=== PATIENT | male | born 1930 | race Caucasian/White ===

== ENCOUNTER 2018-06-12 07:59 | Inpatient (IN) ==
--- NOTE | 2018-06-12 08:52 | ED ---
HPI General Chief complaint: Nausea/Vomiting/Diarrhea Stated complaint: Bleeding Time Seen by Provider: 06/12/18 08:45 Source: patient Mode of arrival: ambulatory Limitations: no limitations History of Present Illness HPI narrative: Patient was admitted back in May 12, 2018 for lower GI bleeding. Patient had a colonoscopy which showed terminal ileum was normal for 10 cm colon and normal vascular pattern and mucosa throughout there is a some diverticulum. Rectum shows internal hemorrhoids were seen on the retroflex examination grade 1. However there was inadequate prep for the colon and adequate evaluation to rule out colonic mucosa to exclude any significant mass lesion cannot be done. today the patient woke up and had 3 loose bm's that were frankly bloody(red) Onset (ago): hour(s) Radiation: other (Bilateral) Severity: mild Quality: aching Pain Consistency: intermittent Relieving factors: none Exacerbating factors: none Associated symptoms: Reports other (Multiple loose stools movement) Treatments prior to arrival: Reports none Related Data Home Medications Medication Instructions Recorded Confirmed aspirin [Aspir-81] 81 mg PO DAILY 05/14/18 06/12/18 digoxin 0.125 mg PO DAILY 05/14/18 06/12/18 dutasteride-tamsulosin 0.5 mg PO DAILY 05/14/18 06/12/18 gabapentin [Neurontin] 100 mg PO DAILY 05/14/18 06/12/18 gabapentin [Neurontin] 300 mg PO HS 05/14/18 06/12/18 magnesium 240 mg PO DAILY 05/14/18 06/12/18 Allergies Allergy/AdvReac Type Severity Reaction Status Date / Time morphine Allergy Hallucinati Verified 06/12/18 09:37 ons Review of Systems ROS: all other systems reviewed are negative PMFSH History History Provided By: Patient Medical History Medical History Diverticulitis (Acute) History of atrial fibrillation (Acute) Hypertension (Acute) Surgical History Surgical History History of cholecystectomy (Acute) History of heart bypass surgery (Acute) Social History Social History Substance History: No History of Abuse Second Hand Smoke Exposure: No Smoking Status: Never smoker How Often Do You Have a Drink Containing Alcohol: Never Recent Travel in [facility] within the Last 8 Weeks: Yes Recent Out of Country Travel within the Last 8 Weeks: No Exam Narrative Exam Narrative: GENERAL: Well-nourished, well-developed patient in no apparent distress. SKIN: Warm and dry. HEAD: Atraumatic. Normocephalic. EYES: Pupils equal and round. No scleral icterus. No injection or drainage. ENT: No nasal bleeding or discharge. Mucous membranes pink and moist. NECK: Trachea midline. No JVD. CARDIOVASCULAR: Regular rate and rhythm. no rubs or gallops RESPIRATORY: No accessory muscle use. Clear to auscultation. Breath sounds equal bilaterally. GASTROINTESTINAL: Abdomen soft, non-tender, nondistended. No rebound or guarding MUSCULOSKELETAL: Extremities without clubbing, cyanosis, or edema. No obvious deformities. NEUROLOGICAL: Awake and alert. No obvious cranial nerve deficits. Motor grossly within normal limits. Five out of 5 muscle strength in the arms and legs. Normal speech. PSYCHIATRIC: Appropriate mood and affect; insight and judgment normal. Course Initial Documented Vital Signs Temperature 97.4 F L 06/12/18 08:04 Pulse Rate 88 06/12/18 08:04 Respiratory Rate 17 06/12/18 08:04 Blood Pressure 106/55 L 06/12/18 08:04 Pulse Oximetry 94 L 06/12/18 08:04 Last Documented Vital Signs Temperature 98.4 F 06/15/18 13:55 Pulse Rate 105 H 06/15/18 14:00 Respiratory Rate 16 06/15/18 13:55 Blood Pressure 130/71 06/15/18 13:55 Pulse Oximetry 98 06/15/18 13:55 Medical Decision Making [facility] Narrative Medical Screen Exam Complete: Yes Emergency Medical Condition: Yes Lab Data Result diagrams: 06/15/18 05:08 06/13/18 03:44 Lab Results 06/12/18 06/12/18 06/12/18 Range/Units 09:00 09:00 09:00 WBC 7.4 (4.0-11.0) th/mm3 RBC 2.69 L (4.50-5.90) mil/mm3 Hgb 8.1 L (13.0-17.0) gm/dL Hct 23.8 L (39.0-51.0) % MCV 88.5 (80.0-100.0) fL MCH 30.0 (27.0-34.0) pg MCHC 33.9 (32.0-36.0) % RDW 17.9 H (11.6-17.2) % Plt Count 168 (150-450) th/mm3 MPV 8.1 (7.0-11.0) fL Neut % (Auto) 75.6 H (16.0-70.0) % Lymph % (Auto) 14.4 (9.0-44.0) % [place] % (Auto) 7.2 (0.0-8.0) % Eos % (Auto) 2.0 (0.0-4.0) % Baso % (Auto) 0.8 (0.0-2.0) % Neut # (Auto) 5.6 (1.8-7.7) th/mm3 Lymph # (Auto) 1.1 (1.0-4.8) th/mm3 [place] # (Auto) 0.5 (0.0-0.9) th/mm3 Eos # (Auto) 0.1 (0.0-0.4) th/mm3 Baso # (Auto) 0.1 (0.0-0.2) th/mm3 WBC Differential . Differential Comment Auto diff final PT (9.8-11.6) sec INR Ratio Sodium 144 (136-145) meq/L Potassium 4.9 (3.5-5.1) meq/L Chloride 111 H (98-107) meq/L Carbon Dioxide 27.0 (21.0-32.0) meq/L Anion Gap 6 (5-15) meq/L BUN 32 H (7-18) mg/dL Creatinine 1.38 H (0.60-1.30) mg/dL Estimated GFR 49 L (>89) mL/min Random Glucose 104 (74-106) mg/dL Calcium 9.4 (8.5-10.1) mg/dL Total Bilirubin 0.6 (0.2-1.0) mg/dL AST 12 L (15-37) U/L ALT 14 (12-78) U/L Alkaline Phosphatase 48 (45-117) U/L Total Protein 6.9 (6.4-8.2) g/dL Albumin 3.5 (3.4-5.0) g/dL Lipase 103 (73-393) U/L Tumor Marker AFP (0.5-8.0) ng/mL Carcinoembryonic Ag (0.2-5.0) ng/mL CA 19-9 Antigen (0.0-35.0) U/mL Urine Color (Yellw/Straw) Urine Clarity (Clear) Urine pH (5.0-8.5) Ur Specific [place] (1.002-1.035) Urine Protein (Neg-Trace) mg/dL Urine Glucose (UA) (Negative) mg/dL Urine Ketones (Negative) mg/dL Urine Occult Blood (Negative) Urine Nitrate (Negative) Urine Bilirubin (Negative) Urine Urobilinogen (Less than 2) mg/dL Ur Leukocyte Esterase (Negative) Urine RBC (0-3) /hpf Urine WBC (0-5) /hpf Ur Squamous Epith Cells (0-5) /hpf Hyaline Casts (0-3) /lpf Urine Mucus (Occasional) /lpf Micro UA Comment Ur Microscopic Review Urine Culture Comments Blood Type B Negative Antibody Screen Negative MTS Gel Crossmatch Bld Prod Order Comment 06/12/18 06/12/18 06/12/18 Range/Units 10:00 15:11 21:16 WBC (4.0-11.0) th/mm3 RBC (4.50-5.90) mil/mm3 Hgb 7.8 L (13.0-17.0) gm/dL Hct 22.9 L (39.0-51.0) % MCV (80.0-100.0) fL MCH (27.0-34.0) pg MCHC (32.0-36.0) % RDW (11.6-17.2) % Plt Count (150-450) th/mm3 MPV (7.0-11.0) fL Neut % (Auto) (16.0-70.0) % Lymph % (Auto) (9.0-44.0) % [place] % (Auto) (0.0-8.0) % Eos % (Auto) (0.0-4.0) % Baso % (Auto) (0.0-2.0) % Neut # (Auto) (1.8-7.7) th/mm3 Lymph # (Auto) (1.0-4.8) th/mm3 [place] # (Auto) (0.0-0.9) th/mm3 Eos # (Auto) (0.0-0.4) th/mm3 Baso # (Auto) (0.0-0.2) th/mm3 WBC Differential Differential Comment PT (9.8-11.6) sec INR Ratio Sodium (136-145) meq/L Potassium (3.5-5.1) meq/L Chloride (98-107) meq/L Carbon Dioxide (21.0-32.0) meq/L Anion Gap (5-15) meq/L BUN (7-18) mg/dL Creatinine (0.60-1.30) mg/dL Estimated GFR (>89) mL/min Random Glucose (74-106) mg/dL Calcium (8.5-10.1) mg/dL Total Bilirubin (0.2-1.0) mg/dL AST (15-37) U/L ALT (12-78) U/L Alkaline Phosphatase (45-117) U/L Total Protein (6.4-8.2) g/dL Albumin (3.4-5.0) g/dL Lipase (73-393) U/L Tumor Marker AFP (0.5-8.0) ng/mL Carcinoembryonic Ag (0.2-5.0) ng/mL CA 19-9 Antigen (0.0-35.0) U/mL Urine Color Yellow (Yellw/Straw) Urine Clarity Clear (Clear) Urine pH 5.0 (5.0-8.5) Ur Specific [place] 1.020 (1.002-1.035) Urine Protein Negative (Neg-Trace) mg/dL Urine Glucose (UA) Negative (Negative) mg/dL Urine Ketones Negative (Negative) mg/dL Urine Occult Blood Negative (Negative) Urine Nitrate Negative (Negative) Urine Bilirubin Negative (Negative) Urine Urobilinogen Less than 2 (Less than 2) mg/dL Ur Leukocyte Esterase Negative (Negative) Urine RBC 1 (0-3) /hpf Urine WBC Less than 1 (0-5) /hpf Ur Squamous Epith Cells <1 (0-5) /hpf Hyaline Casts 1 (0-3) /lpf Urine Mucus Few H (Occasional) /lpf Micro UA Comment Culture not ind Ur Microscopic Review Not Reportable Urine Culture Comments Culture not ind Blood Type Antibody Screen MTS Gel Crossmatch See Detail Bld Prod Order Comment 06/12/18 06/12/18 06/12/18 Range/Units 22:03 22:03 22:03 WBC (4.0-11.0) th/mm3 RBC (4.50-5.90) mil/mm3 Hgb 7.3 L (13.0-17.0) gm/dL Hct 22.3 L (39.0-51.0) % MCV (80.0-100.0) fL MCH (27.0-34.0) pg MCHC (32.0-36.0) % RDW (11.6-17.2) % Plt Count (150-450) th/mm3 MPV (7.0-11.0) fL Neut % (Auto) (16.0-70.0) % Lymph % (Auto) (9.0-44.0) % [place] % (Auto) (0.0-8.0) % Eos % (Auto) (0.0-4.0) % Baso % (Auto) (0.0-2.0) % Neut # (Auto) (1.8-7.7) th/mm3 Lymph # (Auto) (1.0-4.8) th/mm3 [place] # (Auto) (0.0-0.9) th/mm3 Eos # (Auto) (0.0-0.4) th/mm3 Baso # (Auto) (0.0-0.2) th/mm3 WBC Differential Differential Comment PT (9.8-11.6) sec INR Ratio Sodium (136-145) meq/L Potassium (3.5-5.1) meq/L Chloride (98-107) meq/L Carbon Dioxide (21.0-32.0) meq/L Anion Gap (5-15) meq/L BUN (7-18) mg/dL Creatinine (0.60-1.30) mg/dL Estimated GFR (>89) mL/min Random Glucose (74-106) mg/dL Calcium (8.5-10.1) mg/dL Total Bilirubin (0.2-1.0) mg/dL AST (15-37) U/L ALT (12-78) U/L Alkaline Phosphatase (45-117) U/L Total Protein (6.4-8.2) g/dL Albumin (3.4-5.0) g/dL Lipase (73-393) U/L Tumor Marker AFP 1.4 (0.5-8.0) ng/mL Carcinoembryonic Ag 1.2 (0.2-5.0) ng/mL CA 19-9 Antigen 1.8 (0.0-35.0) U/mL Urine Color (Yellw/Straw) Urine Clarity (Clear) Urine pH (5.0-8.5) Ur Specific [place] (1.002-1.035) Urine Protein (Neg-Trace) mg/dL Urine Glucose (UA) (Negative) mg/dL Urine Ketones (Negative) mg/dL Urine Occult Blood (Negative) Urine Nitrate (Negative) Urine Bilirubin (Negative) Urine Urobilinogen (Less than 2) mg/dL Ur Leukocyte Esterase (Negative) Urine RBC (0-3) /hpf Urine WBC (0-5) /hpf Ur Squamous Epith Cells (0-5) /hpf Hyaline Casts (0-3) /lpf Urine Mucus (Occasional) /lpf Micro UA Comment Ur Microscopic Review Urine Culture Comments Blood Type Antibody Screen MTS Gel Crossmatch Bld Prod Order Comment 06/13/18 06/13/18 06/13/18 Range/Units 03:44 03:44 06:04 WBC 6.0 (4.0-11.0) th/mm3 RBC 2.73 L (4.50-5.90) mil/mm3 Hgb 8.1 L (13.0-17.0) gm/dL Hct 24.1 L (39.0-51.0) % MCV 88.2 (80.0-100.0) fL MCH 29.7 (27.0-34.0) pg MCHC 33.6 (32.0-36.0) % RDW 17.5 H (11.6-17.2) % Plt Count 155 (150-450) th/mm3 MPV 7.8 (7.0-11.0) fL Neut % (Auto) 65.0 (16.0-70.0) % Lymph % (Auto) 22.8 (9.0-44.0) % Stan[place] % (Auto) 8.7 H (0.0-8.0) % Eos % (Auto) 2.7 (0.0-4.0) % Baso % (Auto) 0.8 (0.0-2.0) % Neut # (Auto) 3.9 (1.8-7.7) th/mm3 Lymph # (Auto) 1.4 (1.0-4.8) th/mm3 [place] # (Auto) 0.5 (0.0-0.9) th/mm3 Eos # (Auto) 0.2 (0.0-0.4) th/mm3 Baso # (Auto) 0.0 (0.0-0.2) th/mm3 WBC Differential . Differential Comment Auto diff final PT (9.8-11.6) sec INR Ratio Sodium 144 (136-145) meq/L Potassium 4.1 D (3.5-5.1) meq/L Chloride 112 H (98-107) meq/L Carbon Dioxide 26.2 (21.0-32.0) meq/L Anion Gap 6 (5-15) meq/L BUN 23 H (7-18) mg/dL Creatinine 1.16 (0.60-1.30) mg/dL Estimated GFR 60 L (>89) mL/min Random Glucose 93 (74-106) mg/dL Calcium 8.7 (8.5-10.1) mg/dL Total Bilirubin (0.2-1.0) mg/dL AST (15-37) U/L ALT (12-78) U/L Alkaline Phosphatase (45-117) U/L Total Protein (6.4-8.2) g/dL Albumin (3.4-5.0) g/dL Lipase (73-393) U/L Tumor Marker AFP (0.5-8.0) ng/mL Carcinoembryonic Ag (0.2-5.0) ng/mL CA 19-9 Antigen (0.0-35.0) U/mL Urine Color (Yellw/Straw) Urine Clarity (Clear) Urine pH (5.0-8.5) Ur Specific [place] (1.002-1.035) Urine Protein (Neg-Trace) mg/dL Urine Glucose (UA) (Negative) mg/dL Urine Ketones (Negative) mg/dL Urine Occult Blood (Negative) Urine Nitrate (Negative) Urine Bilirubin (Negative) Urine Urobilinogen (Less than 2) mg/dL Ur Leukocyte Esterase (Negative) Urine RBC (0-3) /hpf Urine WBC (0-5) /hpf Ur Squamous Epith Cells (0-5) /hpf Hyaline Casts (0-3) /lpf Urine Mucus (Occasional) /lpf Micro UA Comment Ur Microscopic Review Urine Culture Comments Blood Type Antibody Screen MTS Gel Crossmatch See Detail Bld Prod Order Comment 06/13/18 06/13/18 06/13/18 Range/Units 11:28 16:41 16:41 WBC (4.0-11.0) th/mm3 RBC (4.50-5.90) mil/mm3 Hgb 8.7 L 8.7 L (13.0-17.0) gm/dL Hct 25.8 L 25.7 L (39.0-51.0) % MCV (80.0-100.0) fL MCH (27.0-34.0) pg MCHC (32.0-36.0) % RDW (11.6-17.2) % Plt Count (150-450) th/mm3 MPV (7.0-11.0) fL Neut % (Auto) (16.0-70.0) % Lymph % (Auto) (9.0-44.0) % [place] % (Auto) (0.0-8.0) % Eos % (Auto) (0.0-4.0) % Baso % (Auto) (0.0-2.0) % Neut # (Auto) (1.8-7.7) th/mm3 Lymph # (Auto) (1.0-4.8) th/mm3 [place] # (Auto) (0.0-0.9) th/mm3 Eos # (Auto) (0.0-0.4) th/mm3 Baso # (Auto) (0.0-0.2) th/mm3 WBC Differential Differential Comment PT 11.4 (9.8-11.6) sec INR 1.1 Ratio Sodium (136-145) meq/L Potassium (3.5-5.1) meq/L Chloride (98-107) meq/L Carbon Dioxide (21.0-32.0) meq/L Anion Gap (5-15) meq/L BUN (7-18) mg/dL Creatinine (0.60-1.30) mg/dL Estimated GFR (>89) mL/min Random Glucose (74-106) mg/dL Calcium (8.5-10.1) mg/dL Total Bilirubin (0.2-1.0) mg/dL AST (15-37) U/L ALT (12-78) U/L Alkaline Phosphatase (45-117) U/L Total Protein (6.4-8.2) g/dL Albumin (3.4-5.0) g/dL Lipase (73-393) U/L Tumor Marker AFP (0.5-8.0) ng/mL Carcinoembryonic Ag (0.2-5.0) ng/mL CA 19-9 Antigen (0.0-35.0) U/mL Urine Color (Yellw/Straw) Urine Clarity (Clear) Urine pH (5.0-8.5) Ur Specific [place] (1.002-1.035) Urine Protein (Neg-Trace) mg/dL Urine Glucose (UA) (Negative) mg/dL Urine Ketones (Negative) mg/dL Urine Occult Blood (Negative) Urine Nitrate (Negative) Urine Bilirubin (Negative) Urine Urobilinogen (Less than 2) mg/dL Ur Leukocyte Esterase (Negative) Urine RBC (0-3) /hpf Urine WBC (0-5) /hpf Ur Squamous Epith Cells (0-5) /hpf Hyaline Casts (0-3) /lpf Urine Mucus (Occasional) /lpf Micro UA Comment Ur Microscopic Review Urine Culture Comments Blood Type Antibody Screen MTS Gel Crossmatch Bld Prod Order Comment 06/13/18 06/14/18 06/14/18 Range/Units 23:17 04:31 12:20 WBC 6.2 (4.0-11.0) th/mm3 RBC 2.61 L (4.50-5.90) mil/mm3 Hgb 8.2 L 7.9 L 8.5 L (13.0-17.0) gm/dL Hct 23.8 L 23.4 L 25.0 L (39.0-51.0) % MCV 89.6 (80.0-100.0) fL MCH 30.2 (27.0-34.0) pg MCHC 33.6 (32.0-36.0) % RDW 16.9 (11.6-17.2) % Plt Count 146 L (150-450) th/mm3 MPV 8.1 (7.0-11.0) fL Neut % (Auto) (16.0-70.0) % Lymph % (Auto) (9.0-44.0) % [place] % (Auto) (0.0-8.0) % Eos % (Auto) (0.0-4.0) % Baso % (Auto) (0.0-2.0) % Neut # (Auto) (1.8-7.7) th/mm3 Lymph # (Auto) (1.0-4.8) th/mm3 [place] # (Auto) (0.0-0.9) th/mm3 Eos # (Auto) (0.0-0.4) th/mm3 Baso # (Auto) (0.0-0.2) th/mm3 WBC Differential Differential Comment PT (9.8-11.6) sec INR Ratio Sodium (136-145) meq/L Potassium (3.5-5.1) meq/L Chloride (98-107) meq/L Carbon Dioxide (21.0-32.0) meq/L Anion Gap (5-15) meq/L BUN (7-18) mg/dL Creatinine (0.60-1.30) mg/dL Estimated GFR (>89) mL/min Random Glucose (74-106) mg/dL Calcium (8.5-10.1) mg/dL Total Bilirubin (0.2-1.0) mg/dL AST (15-37) U/L ALT (12-78) U/L Alkaline Phosphatase (45-117) U/L Total Protein (6.4-8.2) g/dL Albumin (3.4-5.0) g/dL Lipase (73-393) U/L Tumor Marker AFP (0.5-8.0) ng/mL Carcinoembryonic Ag (0.2-5.0) ng/mL CA 19-9 Antigen (0.0-35.0) U/mL Urine Color (Yellw/Straw) Urine Clarity (Clear) Urine pH (5.0-8.5) Ur Specific [place] (1.002-1.035) Urine Protein (Neg-Trace) mg/dL Urine Glucose (UA) (Negative) mg/dL Urine Ketones (Negative) mg/dL Urine Occult Blood (Negative) Urine Nitrate (Negative) Urine Bilirubin (Negative) Urine Urobilinogen (Less than 2) mg/dL Ur Leukocyte Esterase (Negative) Urine RBC (0-3) /hpf Urine WBC (0-5) /hpf Ur Squamous Epith Cells (0-5) /hpf Hyaline Casts (0-3) /lpf Urine Mucus (Occasional) /lpf Micro UA Comment Ur Microscopic Review Urine Culture Comments Blood Type Antibody Screen MTS Gel Crossmatch Bld Prod Order Comment 06/15/18 06/15/18 Range/Units 05:08 11:24 WBC 4.9 (4.0-11.0) th/mm3 RBC 2.52 L (4.50-5.90) mil/mm3 Hgb 7.7 L (13.0-17.0) gm/dL Hct 22.6 L (39.0-51.0) % MCV 89.6 (80.0-100.0) fL MCH 30.5 (27.0-34.0) pg MCHC 34.0 (32.0-36.0) % RDW 17.6 H (11.6-17.2) % Plt Count 148 L (150-450) th/mm3 MPV 8.4 (7.0-11.0) fL Neut % (Auto) (16.0-70.0) % Lymph % (Auto) (9.0-44.0) % [place] % (Auto) (0.0-8.0) % Eos % (Auto) (0.0-4.0) % Baso % (Auto) (0.0-2.0) % Neut # (Auto) (1.8-7.7) th/mm3 Lymph # (Auto) (1.0-4.8) th/mm3 [place] # (Auto) (0.0-0.9) th/mm3 Eos # (Auto) (0.0-0.4) th/mm3 Baso # (Auto) (0.0-0.2) th/mm3 WBC Differential Differential Comment PT (9.8-11.6) sec INR Ratio Sodium (136-145) meq/L Potassium (3.5-5.1) meq/L Chloride (98-107) meq/L Carbon Dioxide (21.0-32.0) meq/L Anion Gap (5-15) meq/L BUN (7-18) mg/dL Creatinine (0.60-1.30) mg/dL Estimated GFR (>89) mL/min Random Glucose (74-106) mg/dL Calcium (8.5-10.1) mg/dL Total Bilirubin (0.2-1.0) mg/dL AST (15-37) U/L ALT (12-78) U/L Alkaline Phosphatase (45-117) U/L Total Protein (6.4-8.2) g/dL Albumin (3.4-5.0) g/dL Lipase (73-393) U/L Tumor Marker AFP (0.5-8.0) ng/mL Carcinoembryonic Ag (0.2-5.0) ng/mL CA 19-9 Antigen (0.0-35.0) U/mL Urine Color (Yellw/Straw) Urine Clarity (Clear) Urine pH (5.0-8.5) Ur Specific [place] (1.002-1.035) Urine Protein (Neg-Trace) mg/dL Urine Glucose (UA) (Negative) mg/dL Urine Ketones (Negative) mg/dL Urine Occult Blood (Negative) Urine Nitrate (Negative) Urine Bilirubin (Negative) Urine Urobilinogen (Less than 2) mg/dL Ur Leukocyte Esterase (Negative) Urine RBC (0-3) /hpf Urine WBC (0-5) /hpf Ur Squamous Epith Cells (0-5) /hpf Hyaline Casts (0-3) /lpf Urine Mucus (Occasional) /lpf Micro UA Comment Ur Microscopic Review Urine Culture Comments Blood Type B Negative Antibody Screen Negative MTS Gel Crossmatch See Detail Bld Prod Order Comment Imaging Data Radiologist's impression: GI Bleed Scan Nuclear Medicine 06/12/18 00:00 CONCLUSION: 1. Findings consistent with active hemorrhage in the rectum. Abdomen/Pelvis CT 06/12/18 08:46 CONCLUSION: 1. Nonspecific, nonobstructive bowel gas pattern which may represent an ileus or gastroenteritis. 2. Diverticulosis with no definite focal inflammatory change. 3. Status post cholecystectomy with mild dilatation of the central biliary system which does not appear significantly changed. 4. Moderate size retrocardiac hiatal hernia. Mesenteric Arteriogram 06/13/18 00:00 CONCLUSION: 1. No evidence of acute gastrointestinal hemorrhage Discharge Plan Discharge Disposition Patient Disposition: ED Admit(ED Internal Use Only) Discharge Condition Condition: Stable Discharge Order Discharge Orders: Discharge Order (Routine); Ordered 06/15/18 Ordered By: Marian Moncada ED Use Only Admit Order (Routine); Ordered 06/12/18 Ordered By: Osiel Merino Discharge Details Anticipated Discharge Date: 06/15/18 Discharge Comment: discharge after blood transfusion Diagnosis: GI bleed Physicians Team ED Provider: Osiel Merino Attending Provider: Starr Castro Other Providers: Heri Jones V ; [employer] Status ED Status: Left Department Discharge Information Discharge Date/Time: 06/12/18 11:25
[2018-06-12 09:24] LABS: Baso # (Auto) 0.1 th/mm3 (0.0-0.2); Baso % (Auto) 0.8 % (0.0-2.0); Eos # (Auto) 0.1 th/mm3 (0.0-0.4); Hematocrit 23.8 % (39.0-51.0); Hemoglobin 8.1 gm/dL (13.0-17.0); Lymph # (Auto) 1.1 th/mm3 (1.0-4.8); Lymph % (Auto) 14.4 % (9.0-44.0); Mean Corpuscular HGB Conc 33.9 % (32.0-36.0); Mean Corpuscular Volume 88.5 fL (80.0-100.0); Mean Platelet Volume 8.1 fL (7.0-11.0); Mono # (Auto) 0.5 th/mm3 (0.0-0.9); Mono % (Auto) 7.2 % (0.0-8.0); Neut # (Auto) 5.6 th/mm3 (1.8-7.7); Neut % (Auto) 75.6 % (16.0-70.0); Platelet Count 168 th/mm3 (150-450); Red Blood Count 2.69 mil/mm3 (4.50-5.90); Red Cell Distribution Width 17.9 % (11.6-17.2); White Blood Count 7.4 th/mm3 (4.0-11.0)
[2018-06-12 09:36] LABS: Albumin 3.5 g/dL (3.4-5.0); Anion Gap 6 meq/L (5-15); Aspartate Aminotransferase 12 U/L (15-37); Blood Urea Nitrogen 32 mg/dL (7-18); Calcium 9.4 mg/dL (8.5-10.1); Chloride 111 meq/L (98-107); Glomerular Filtration Rate 49 mL/min (>89); Glucose,Random 104 mg/dL (74-106); Lipase 103 U/L (73-393); Potassium 4.9 meq/L (3.5-5.1); Sodium 144 meq/L (136-145)
[2018-06-12 09:37] LABS: Alanine Aminotransferase 14 U/L (12-78)
[2018-06-12 09:40] LABS: Alkaline Phosphatase 48 U/L (45-117); Total Protein 6.9 g/dL (6.4-8.2)
--- NOTE | 2018-06-12 10:48 | P.HPIM ---
History of Present Illness Primary Care Physician: Kenneth Marquis Chief Complaint: rectal bleed History of Present Illness: patient is a 87 y/o male with history of diverticulosis,CAD, a-fib, who presented to ER with recurrent rectal bleed. he was admitted to this hospital about a month ago and had colonoscopy during which he was found to have diverticulosis. he says that he had another episode of rectal bleed this morning. he says that it was initially bright red but he had a few more episodes of dark-blood per rectum. he denies any abdominal pain, nausea or vomiting. he denies any chest pain, sob or dizziness. Review of Systems Review of Systems: all other systems reviewed are negative [facility] Medical History Medical History Diverticulitis (Acute) History of atrial fibrillation (Acute) Hypertension (Acute) Surgical History Surgical History History of cholecystectomy (Acute) History of heart bypass surgery (Acute) Social History Social History Substance History: No History of Abuse Second Hand Smoke Exposure: No Smoking Status: Never smoker How Often Do You Have a Drink Containing Alcohol: Never Recent Travel in [place] within the Last 8 Weeks: No Recent Out of Country Travel within the Last 8 Weeks: No Immunization History Tetanus Immunization: <5 Years Medications and Allergies Allergies Allergy/AdvReac Type Severity Reaction Status Date / Time morphine Allergy Hallucinati Verified 06/12/18 09:37 ons Home Medications Medication Instructions Recorded Confirmed Type aspirin [Aspir-81] 81 mg PO DAILY 05/14/18 06/12/18 History digoxin 0.125 mg PO DAILY 05/14/18 06/12/18 History dutasteride-tamsulosin 0.5 mg PO DAILY 05/14/18 06/12/18 History gabapentin [Neurontin] 100 mg PO DAILY 05/14/18 06/12/18 History gabapentin [Neurontin] 300 mg PO HS 05/14/18 06/12/18 History magnesium 240 mg PO DAILY 05/14/18 06/12/18 History Active Medications: Active Medications Sodium Chloride (Ns Flush) 2 ml IV.FLUSH PRN PRN PRN Reason: FLUSH AFTER USING IV ACCESS Physical Exam Vital signs: Vital Signs 06/12/18 08:04 06/12/18 08:54 Temperature 97.4 F L Pulse Rate 88 79 Respiratory Rate 17 18 Blood Pressure 106/55 L 103/60 Pulse Oximetry 94 L 96 Intake & Output 06/11/18 06/12/18 06/12/18 18:59 06:59 18:59 Weight 72.575 kg Constitutional no acute distress Routine HEENT Exam Eye: Present PERRL Routine Neck Exam Present supple Routine Respiratory Exam Present CTA bilaterally Routine Cardiovascular Exam Present RRR Routine Abdominal Exam Present soft Routine Extremities Exam Comments: no pedal edema. Routine Neurological Exam Present alert and oriented X3 Results Labs CBC & Chem 7: 06/12/18 09:00 06/12/18 09:00 Caprini VTE Risk Assessment Caprini VTE Risk Assessment: Moderate/High Risk (score >= 2) VTE Pharmacological Exception Reason: High risk for bleeding Monicorinjerilyn Risk Assessment Model: Point Value = 1 Point Value = 2 Point Value = 3 Point Value = 5 Age 41-60 Minor surgery BMI > 25 kg/m2 Swollen legs Varicose veins or History of unexplained or recurrent spontaneous Oral contraceptives or hormone replacement Sepsis (< 1 month) Serious lung disease, including pneumonia (< 1 month) Abnormal pulmonary function Acute myocardial infarction Congestive heart failure (< 1 month) History of inflammatory bowel disease Medical patient at bed rest Age 61-74 Arthroscopic surgery Major open surgery (> 45 min) Laparoscopic surgery (> 45 min) Malignancy Confined to bed (> 72 hours) Immobilizing plaster cast Central venous access Age >= 75 History of VTE Family history of VTE Factor V Leiden Prothrombin [id number] Lupus anticoagulant Anticardiolipin antibodies Elevated serum homocysteine Heparin-induced thrombocytopenia Other congenital or acquired thrombophilia Stroke (< 1 month) Elective arthroplasty Hip, pelvis, or leg fracture Acute spinal cord injury (< 1 month) Prophylaxis Regimen: Total Risk Factor Score Risk Level Prophylaxis Regimen 0-1 Low Early ambulation 2 Moderate Order ONE of the following: *Sequential Compression Device (SCD) *Heparin 5000 units SQ BID 3-4 Higher Order ONE of the following medications: *Heparin 5000 units SQ TID *Enoxaparin/Lovenox 40 mg SQ daily (WT < 150 kg, CrCl > 30 mL/min) *Enoxaparin/Lovenox 30 mg SQ daily (WT < 150 kg, CrCl > 10-29 mL/min) *Enoxaparin/Lovenox 30 mg SQ BID (WT < 150 kg, CrCl > 30 mL/min) AND/OR *Sequential Compression Device (SCD) 5 or more Highest Order ONE of the following medications: *Heparin 5000 units SQ TID (Preferred with Epidurals) *Enoxaparin/Lovenox 40 mg SQ daily (WT < 150 kg, CrCl > 30 mL/min) *Enoxaparin/Lovenox 30 mg SQ daily (WT < 150 kg, CrCl > 10-29 mL/min) *Enoxaparin/Lovenox 30 mg SQ BID (WT < 150 kg, CrCl > 30 mL/min) AND *Sequential Compression Device (SCD) Assessment and Plan Plan A/P - recurrent rectal bleed NPO for now- continue to monitor H/H and transfuse as needed- consult GI of note had a colonoscopy last month which showed diverticulosis. -CAD/ history of a-fib hold aspirin- continue Digoxin- hold Metoprolol for now. -renal insufficiency likely chronic- will monitor. -DVT prophylaxis with SCD's- no chemical prophylaxis due to GI bleed. Discussed Condition With: the ER physician and the patient. Discharge Planning: home when stable-pending GI evaluation.
[2018-06-12 10:53] LABS: Bilirubin,Urine Negative (Negative); Clarity,Urine Clear (Clear); Color,Urine Yellow (Yellw/Straw); Glucose,Urine (UA) Negative (Negative); Hyaline Casts,Urine 1 /lpf (0-3); Leukocyte Esterase,Urine Negative (Negative); Mucus,Urine Few /lpf (Occasional); Nitrite,Urine Negative (Negative); Squamous Epithelial Cell,Urine <1 /hpf (0-5)
[2018-06-12] MEDS: Sod Chloride 0.9% Inj 1,000 ML IV.CONT SCH (11:06)
--- NOTE | 2018-06-12 14:36 | CT ---
EXAM DATE: 06/12/2018 2:22 PM EST AGE/SEX: 87 years / Male INDICATIONS: Abdomen pain with blood in stool. CLINICAL DATA: This is the patient's initial encounter. Patient reports that signs and symptoms have been present for 1 day and indicates a pain score of 0/10. MEDICAL/SURGICAL HISTORY: Hypertension. Diverticulitis. Cholecystectomy. CABG. ORAL CONTRAST: No oral contrast ingested. RADIATION DOSE: 5.96 CTDI (mGy) COMPARISON: [facility] [place], CT ABDOMEN & PELVIS W CONTRAST, 05/14/2018. . TECHNIQUE: Multiple contiguous axial images were obtained through the abdomen and pelvis following b olus infusion of 95 ml Omnipaque 350 (iohexol) nonionic water-soluble contrast as a single exam dos e. No oral contrast ingested. Using automated exposure control and adjustment of the mA and/or kV ac cording to patient size, radiation dose was kept as low as reasonably achievable to obtain optimal di agnostic quality images. DICOM format image data is available electronically for review and comparis on. FINDINGS: Lower Lungs: The visualized lower lungs are clear. The heart size remains mildly enlarged. Liver: The liver has a homogeneous density without space-occupying lesion. The patient is status post cholecystectomy. There is mild stable prominence of the biliary system which is not as well-visualiz ed due to motion artifact. Spleen: Homogeneous density without enlargement. Pancreas: Unremarkable without mass or calcification. Kidneys: Normal in size and shape. No evidence of mass or hydronephrosis. Adrenal Glands: Unremarkable. Aorta: The aorta and proximal iliac vessels are grossly unremarkable without aneurysmal dilation. Bowel/Mesentery: There is a moderate size retrocardiac hiatal hernia. No oral contrast was given limi ting the sensitivity of the exam. Numerous diverticuli are again noted greatest in the sigmoid colon. There is no distinct focal inflammatory change. There is no free air or fluid. There are multiple lo ops of nondilated air-containing small bowel with multiple small air-fluid levels. The bowel loops ar e grossly unremarkable. The cecum and sigmoid colon have a normal configuration. Abdominal Wall: Intact. Retroperitoneum: No evidence of adenopathy in the retrocrural, para-aortic, or deep pelvic regions. Bladder: Contours are smooth. Reproductive Organs: No abnormal masses or calcifications seen. Inguinal: The inguinal region is unremarkable without evidence of adenopathy. Bony Structures: Osteopenia, degenerative change and scoliosis are again noted. The patient is statu s post median sternotomy. CONCLUSION: 1. Nonspecific, nonobstructive bowel gas pattern which may represent an ileus or gastroenteritis. 2. Diverticulosis with no definite focal inflammatory change. 3. Status post cholecystectomy with mild dilatation of the central biliary system which does not ryan ear significantly changed. 4. Moderate size retrocardiac hiatal hernia. Electronically signed by: Arvin Ugarte MD Board Certified Radiologist 06/12/2018 2:35 PM EST
--- NOTE | 2018-06-12 15:09 | P.CONGI ---
History of Present Illness Consult date: 06/12/18 Consult reason: Recurrent GI bleed Chief complaint: GI Bleed, Anemia History of Present Illness: This is a very pleasant 87-year-old male patient with medical history significant for diverticulosis CAD atrial fib presented to the ER for profuse bright red blood per rectum accompanied by his . He was just hospitalized a month ago and had colonoscopy done which was found to have moderate diverticulosis. Patient did not have any more blood in the stool until this morning. Patient denies abdominal pain nausea vomiting no fever. Patient and were alerted when he had another bowel movement with profuse rectal bleeding with some clots this a.m. prompting them to come to the emergency room. Patient denies any blood thinners other than aspirin 81 mg daily. our service is consulted for recurrent GI bleed. Review of Systems All other systems reviewed negative except as stated in HPI PMFSH - History History Provided By: Patient - Medical History Medical History: Medical History (Last Reviewed 06/12/18 @ 10:46 by Ivana Roldan MD) Diverticulitis History of atrial fibrillation Hypertension - Surgical History Surgical History: Surgical History (Last Reviewed 06/12/18 @ 10:46 by Ivana Roldan MD) History of cholecystectomy History of heart bypass surgery - Tobacco History Second Hand Smoke Exposure: No Smoking Status: Never smoker - Alcohol History How Often Do You Have a Drink Containing Alcohol: Never - Substance Use History Substance History: No History of Abuse - Travel History Recent Travel in the [place] Within the Last 8 Weeks: Yes Recent Travel Out of the Country Within the Last 8 Weeks: No - Immunization History Tetanus Immunization: <5 Years Medications and Allergies Active Medications: Active Medications Digoxin (Lanoxin) 125 mcg PO DAILY [facility] Finasteride (Proscar) 5 mg PO DAILY [facility] Gabapentin (Neurontin) 100 mg PO DAILY [facility] Gabapentin (Neurontin) 300 mg PO HS [facility] Sodium Chloride (Ns Inj) 1,000 mls @ 70 mls/hr IV.CONT .[id number] [facility] Last Admin: 06/12/18 11:06 Dose: 70 mls/hr Metoprolol Tartrate (Lopressor) 25 mg PO BID LIZ[facility] Sodium Chloride (Ns Flush) 2 ml IV.FLUSH PRN PRN PRN Reason: FLUSH AFTER USING IV ACCESS Tamsulosin HCl (Flomax) 0.4 mg PO DAILY [facility] Allergies Allergy/AdvReac Type Severity Reaction Status Date / Time morphine Allergy Hallucinati Verified 06/12/18 09:37 ons Home Medications Medication Instructions Recorded Confirmed Type aspirin [Aspir-81] 81 mg PO DAILY 05/14/18 06/12/18 History digoxin 0.125 mg PO DAILY 05/14/18 06/12/18 History dutasteride-tamsulosin 0.5 mg PO DAILY 05/14/18 06/12/18 History gabapentin [Neurontin] 100 mg PO DAILY 05/14/18 06/12/18 History gabapentin [Neurontin] 300 mg PO HS 05/14/18 06/12/18 History magnesium 240 mg PO DAILY 05/14/18 06/12/18 History Exam Vital signs: Vital Signs 06/12/18 08:04 06/12/18 08:54 06/12/18 11:07 Temperature 97.4 F L Pulse Rate 88 79 86 Respiratory Rate 17 18 18 Blood Pressure 106/55 L 103/60 120/67 Pulse Oximetry 94 L 96 96 06/12/18 12:00 Temperature 97.6 F Pulse Rate 81 Respiratory Rate 16 Blood Pressure 115/75 Pulse Oximetry 98 Intake & Output 06/11/18 06/12/18 06/12/18 18:59 06:59 18:59 Weight 72.575 kg Other: Weight On Admission 72.575 kg - Constitutional no acute distress - Routine HEENT Exam Head: Present: normocephalic, atraumatic - Routine Neck Exam Present: supple - Routine Respiratory Exam Present: CTA bilaterally - Routine Cardiovascular Exam Present: RRR, S1, S2 - Routine Abdominal Exam Present: soft, normoactive bowel sounds. Absent: tenderness, distended - Routine Extremities Exam Present: pulses intact, normal capillary refill - Routine Skin Exam Present: intact - Routine Neurological Exam Present: alert, oriented X3 Results - Labs CBC & Chem 7: 06/12/18 15:11 06/12/18 09:00 Labs: Laboratory Results - last 24 hr 06/12/18 06/12/18 06/12/18 09:00 09:00 09:00 WBC 7.4 RBC 2.69 L Hgb 8.1 L Hct 23.8 L MCV 88.5 MCH 30.0 MCHC 33.9 RDW 17.9 H Plt Count 168 MPV 8.1 Neut % (Auto) 75.6 H Lymph % (Auto) 14.4 [place] % (Auto) 7.2 Eos % (Auto) 2.0 Baso % (Auto) 0.8 Neut # (Auto) 5.6 Lymph # (Auto) 1.1 [place] # (Auto) 0.5 Eos # (Auto) 0.1 Baso # (Auto) 0.1 WBC Differential . Differential Comment Auto diff final Sodium 144 Potassium 4.9 Chloride 111 H Carbon Dioxide 27.0 Anion Gap 6 BUN 32 H Creatinine 1.38 H Estimated GFR 49 L Random Glucose 104 Calcium 9.4 Total Bilirubin 0.6 AST 12 L ALT 14 Alkaline Phosphatase 48 Total Protein 6.9 Albumin 3.5 Lipase 103 Urine Color Urine Clarity Urine pH Ur Specific [place] Urine Protein Urine Glucose (UA) Urine Ketones Urine Occult Blood Urine Nitrate Urine Bilirubin Urine Urobilinogen Ur Leukocyte Esterase Urine RBC Urine WBC Ur Squamous Epith Cells Hyaline Casts Urine Mucus Micro UA Comment Ur Microscopic Review Urine Culture Comments Blood Type B Negative Antibody Screen Negative 06/12/18 10:00 WBC RBC Hgb Hct MCV MCH MCHC RDW Plt Count MPV Neut % (Auto) Lymph % (Auto) [place] % (Auto) Eos % (Auto) Baso % (Auto) Neut # (Auto) Lymph # (Auto) [place] # (Auto) Eos # (Auto) Baso # (Auto) WBC Differential Differential Comment Sodium Potassium Chloride Carbon Dioxide Anion Gap BUN Creatinine Estimated GFR Random Glucose Calcium Total Bilirubin AST ALT Alkaline Phosphatase Total Protein Albumin Lipase Urine Color Yellow Urine Clarity Clear Urine pH 5.0 Ur Specific [place] 1.020 Urine Protein Negative Urine Glucose (UA) Negative Urine Ketones Negative Urine Occult Blood Negative Urine Nitrate Negative Urine Bilirubin Negative Urine Urobilinogen Less than 2 Ur Leukocyte Esterase Negative Urine RBC 1 Urine WBC Less than 1 Ur Squamous Epith Cells <1 Hyaline Casts 1 Urine Mucus Few H Micro UA Comment Culture not ind Ur Microscopic Review Not Reportable Urine Culture Comments Culture not ind Blood Type Antibody Screen - Imaging Impressions Abdomen/Pelvis CT 06/12/18 08:46 CONCLUSION: 1. Nonspecific, nonobstructive bowel gas pattern which may represent an ileus or gastroenteritis. 2. Diverticulosis with no definite focal inflammatory change. 3. Status post cholecystectomy with mild dilatation of the central biliary system which does not appear significantly changed. 4. Moderate size retrocardiac hiatal hernia. Assessment and Plan (1) Recurrent gastrointestinal hemorrhage Status: Acute Code(s): K92.2 - Gastrointestinal hemorrhage, unspecified (2) Rectal bleeding Status: Acute Code(s): K62.5 - Hemorrhage of anus and rectum (3) GI bleed Status: Acute Code(s): K92.2 - Gastrointestinal hemorrhage, unspecified - Plan 06/12/2018 This is a very pleasant 87-year-old male patient with medical history significant for diverticulosis CAD atrial fib presented to the ER for profuse bright red blood per rectum accompanied by his . He was just hospitalized a month ago and had colonoscopy done which was found to have moderate diverticulosis. Patient did not have any more blood in the stool until this morning. Patient denies abdominal pain nausea vomiting no fever. Patient and were alerted when he had another bowel movement with profuse rectal bleeding with some clots this a.m. prompting them to come to the emergency room. Patient denies any blood thinners other than aspirin 81 mg daily. our service is consulted for recurrent GI bleed. Assessment Recurrent rectal bleeding Chronic anemia History of atrial fibrillation Possible gastroenteritis CT abdomen pelvis 06/12/2018 showed Nonspecific, nonobstructive bowel gas pattern which may represent an ileus or gastroenteritis. 2. Diverticulosis with no definite focal inflammatory change. 3. Status post cholecystectomy with mild dilatation of the central biliary system which does not appear significantly changed. 4. Moderate size retrocardiac hiatal hernia. Plan Clear liquid diet N.p.o. after midnight EGD colonoscopy on hold for bleeding scan Monitor active bleeding Transfuse as needed Notify GI team with profuse rectal bleed Monitor labs serial H&H Stool studies for occult and other parasites PPI Supportive care Further recommendations to follow This patient was seen and examined by myself and Dr. Jones and his note is written on his behalf - Attending Attestation Dr. Jones
[2018-06-12 15:26] LABS: Hematocrit 22.9 % (39.0-51.0); Hemoglobin 7.8 gm/dL (13.0-17.0)
[2018-06-12] MEDS ORDERED: PEG 3350/E-Lyte Soln 4000 ML Bottle PO ONE (16:00)
[2018-06-12] MEDS ORDERED: Magnesium Citrate Liq 300 ML Bottle PO ONE ×2 (16:55→18:00)
[2018-06-12] MEDS ORDERED: Metoprolol Tartrate 25 MG Tablet PO SCH (21:00)
--- NOTE | 2018-06-12 21:42 | NM ---
EXAM DATE: 06/12/2018 9:30 PM EST AGE/SEX: 87 years / Male INDICATIONS: Rectal bleeding. CLINICAL DATA: This is the patient's initial encounter. Patient reports that signs and symptoms have been present for 1 day and indicates a pain score of 0/10. MEDICAL/SURGICAL HISTORY: Hypertension. Atrial fibrillation. CABG. Cholecystectomy. COMPARISON: No prior exams available for comparison. TECHNIQUE: Following the modified in vitro labeling of autologous red cells, dynamic continuous image s were acquired for two hours. ?? DOSE: 21 mCi Tc 99m Ultratag Labeled Red Blood Cells IV IMAGING TIME: 2 hr FINDINGS: Biodistribution: There is a very good labeling of red cells without significant uptake in the gastri c wall. There is good delineation of the blood pool of the spleen and abdominal vessels. Bleeding: There is near immediate accumulation of activity in the region of the rectum which progre sses through the examination. CONCLUSION: 1. Findings consistent with active hemorrhage in the rectum. Electronically signed by: Tyron Church MD Board Certified Radiologist 06/12/2018 9:41 PM EST
[2018-06-12] MEDS ORDERED: Sodium Chlor 0.9% Inj 250 ML IV.SIG SCH (22:00)
[2018-06-12 22:34] LABS: Hematocrit 22.3 % (39.0-51.0); Hemoglobin 7.3 gm/dL (13.0-17.0)
[2018-06-12] MEDS: Gabapentin 300 MG Capsule PO SCH (22:44)
[2018-06-12] MEDS: Pantoprazole Inj 80 MG in Sodium Chlor 0.9% Inj 100 ML IV.CONT SCH (22:45)
[2018-06-12 22:58] LABS: Alpha Fetoprotein Tumor Marker 1.4 ng/mL (0.5-8.0); Carcinoembryonic Antigen 1.2 ng/mL (0.2-5.0)
[2018-06-13] MEDS: Sod Chloride 0.9% Inj 1,000 ML IV.CONT SCH ×2 (03:53→15:37)
[2018-06-13 03:58] LABS: Baso % (Auto) 0.8 % (0.0-2.0); Eos # (Auto) 0.2 th/mm3 (0.0-0.4); Eos % (Auto) 2.7 % (0.0-4.0); Hematocrit 24.1 % (39.0-51.0); Hemoglobin 8.1 gm/dL (13.0-17.0); Lymph # (Auto) 1.4 th/mm3 (1.0-4.8); Lymph % (Auto) 22.8 % (9.0-44.0); Mean Corpuscular HGB Conc 33.6 % (32.0-36.0); Mean Corpuscular Hemoglobin 29.7 pg (27.0-34.0); Mean Corpuscular Volume 88.2 fL (80.0-100.0); Mean Platelet Volume 7.8 fL (7.0-11.0); Mono # (Auto) 0.5 th/mm3 (0.0-0.9); Mono % (Auto) 8.7 % (0.0-8.0); Neut # (Auto) 3.9 th/mm3 (1.8-7.7); Platelet Count 155 th/mm3 (150-450); Red Blood Count 2.73 mil/mm3 (4.50-5.90); Red Cell Distribution Width 17.5 % (11.6-17.2)
[2018-06-13 04:24] LABS: Calcium 8.7 mg/dL (8.5-10.1); Carbon Dioxide 26.2 meq/L (21.0-32.0); Potassium 4.1 meq/L (3.5-5.1)
[2018-06-13] MEDS ORDERED: Sod Phosphate/Sod Biphosphate (Adult) Enema 133 ML Bottle RECTAL ONE ×2 (06:00→08:00)
[2018-06-13] MEDS: Pantoprazole Inj 80 MG in Sodium Chlor 0.9% Inj 100 ML IV.CONT SCH ×3 (08:04→13:30)
--- NOTE | 2018-06-13 08:42 | P.PNIM ---
Subjective Interval history: f/u; rectal bleed in no acute distress. denies abdominal pain, nausea,vomiting. still with some rectal bleed. blood transfusion in process. d/w the RN at the bedside. Physical Exam Vital signs: Vital Signs 06/12/18 08:54 06/12/18 11:07 06/12/18 12:00 Temperature 97.6 F Pulse Rate 79 86 81 Respiratory Rate 18 18 16 Blood Pressure 103/60 120/67 115/75 Pulse Oximetry 96 96 98 06/12/18 15:52 06/12/18 22:41 06/13/18 00:50 Temperature 97.7 F 98.5 F 97.7 F Pulse Rate 87 92 H 97 H Respiratory Rate 16 16 16 Blood Pressure 130/81 141/73 H 134/81 Pulse Oximetry 94 L 96 94 L 06/13/18 01:06 06/13/18 01:07 06/13/18 01:27 Temperature 97.7 F 97.7 F 97.7 F Pulse Rate 99 H 93 H 97 H Respiratory Rate 16 16 16 Blood Pressure 123/73 123/73 133/76 Pulse Oximetry 97 97 95 06/13/18 02:14 06/13/18 03:39 06/13/18 08:00 Temperature 97.7 F 97.7 F 98.2 F Pulse Rate 86 85 95 H Respiratory Rate 16 16 16 Blood Pressure 137/86 138/78 123/63 Pulse Oximetry 96 95 95 06/13/18 08:37 Temperature 98.2 F Pulse Rate 96 H Respiratory Rate 18 Blood Pressure 123/63 Pulse Oximetry 94 L Intake & Output 06/12/18 06/13/18 06/13/18 18:59 06:59 18:59 Intake Total 1880 / 1880 100 / 100 Output Total 760 / 760 Balance 1120 / 1120 100 / 100 Weight 72.575 kg 72.575 kg Intake: IV 1000 / 1000 100 / 100 Protonix Inj 80 MG In NS Inj 100 / 100 100 ML @ 10 mls/hr IV.CONT Q10H [facility] Rx#:[id number] NS Inj 1,000 ML @ 70 mls/hr IV. 1000 / 1000 CONT .[id number] [facility] Rx#:[id number] Oral 480 / 480 Intake (Blood Product) Amt 400 / 400 Rbc As-3 Leukoreduced Unit 400 / 400 [id number] Output: Urine 760 / 760 Other: Weight On Admission 72.575 kg Constitutional no acute distress Routine Respiratory Exam Present CTA bilaterally Routine Cardiovascular Exam Present RRR Routine Abdominal Exam Present soft Routine Extremities Exam Comments: no pedal edema. Routine Neurological Exam Present alert and oriented X3 Results Labs CBC & Chem 7: 06/13/18 03:44 06/13/18 03:44 Imaging Imaging: Impressions GI Bleed Scan Nuclear Medicine 06/12/18 00:00 CONCLUSION: 1. Findings consistent with active hemorrhage in the rectum. Abdomen/Pelvis CT 06/12/18 08:46 CONCLUSION: 1. Nonspecific, nonobstructive bowel gas pattern which may represent an ileus or gastroenteritis. 2. Diverticulosis with no definite focal inflammatory change. 3. Status post cholecystectomy with mild dilatation of the central biliary system which does not appear significantly changed. 4. Moderate size retrocardiac hiatal hernia. Assessment and Plan (1) Recurrent gastrointestinal hemorrhage: Code(s): K92.2 - Gastrointestinal hemorrhage, unspecified Status: Acute (2) Rectal bleeding: Code(s): K62.5 - Hemorrhage of anus and rectum Status: Acute (3) GI bleed: Code(s): K92.2 - Gastrointestinal hemorrhage, unspecified Status: Acute Plan A/P - recurrent rectal bleed bleeding scan with active rectal bleed. will transfuse with PRBC and monitor H/H closely- GI following. of note had a colonoscopy last month which showed diverticulosis. -CAD/ history of a-fib continue to hold aspirin- continue Digoxin- hold Metoprolol for now. -renal insufficiency- improved. likely chronic- will monitor. -DVT prophylaxis with SCD's- no chemical prophylaxis due to GI bleed. Discussed Condition With: the patient and RN. Discharge Planning: home when stable-pending GI evaluation/clinical course. Progress Note: Quality VTE Deep Vein Thrombosis/Pulmonary Embolism Present on Admission: No _ (1) GI bleed Qualifiers: GI bleed type/associated pathology: Gastritis type:
[2018-06-13] MEDS: Digoxin 125 MCG Tablet PO SCH (09:34)
[2018-06-13] MEDS: Gabapentin 100 MG Capsule PO SCH (09:34)
[2018-06-13] MEDS: Finasteride 5 MG Tablet PO SCH (09:35)
[2018-06-13 12:14] LABS: Hematocrit 25.8 % (39.0-51.0); Hemoglobin 8.7 gm/dL (13.0-17.0)
[2018-06-13] MEDS ORDERED: Metoprolol Tartrate 25 MG Tablet PO SCH (12:49)
[2018-06-13] MEDS ORDERED: Chlorhexidine Gluconate 2% 1 Pack (2 Cloths) TOPICAL SCH (12:49)
[2018-06-13] MEDS ORDERED: Sodium Chlor 0.9% Inj 500 ML IV.SIG SCH (13:00)
[2018-06-13] MEDS ORDERED: Lidocaine PF 1% Inj 5 ML Syringe OTHER ONE (13:29)
--- NOTE | 2018-06-13 14:09 | GIPROC ---
[facility] [place] [address] [facility]. [facility], [address] FLEXIBLE SIGMOIDOSCOPY PROCEDURE REPORT EXAM DATE: 06/13/2018 PATIENT NAME: Blayne Zambrano MR #: [id number] BIRTHDATE: 1930 ORDER #: [id number] ATTENDING: Heri Jones MD [employer] SERVICE ASSOCIATE: STATUS: inpatient INDICATIONS: The patient is a 87 yr old male here for a flexible sigmoidoscopy due to rectal bleeding and Positive bleeding scan PROCEDURE PERFORMED: Flexible Sigmoidoscopy, diagnostic MEDICATIONS: Per Anesthesia and None. ESTIMATED BLOOD LOSS: None CONSENT: The patient understands the risks and benefits of the procedure and understands that these risks include, but are not limited to: sedation, allergic reaction, infection, perforation and/or bleeding. Alternative means of evaluation and treatment include, among others: physical exam, x-rays, and/or surgical intervention. The patient elects to proceed with this endoscopic procedure. medical equipment was checked for proper function. Hand hygiene and appropriate measures for infection prevention was taken. After the risks, benefits and alternatives of the procedure were thoroughly explained, Informed consent was verified, confirmed and timeout was successfully executed by the treatment team. A digital rectal exam revealed no abnormalities of the rectum The Pentax [id number] endoscope was introduced through the anus and advanced to the sigmoid colon. The prep was poor. The instrument was then slowly withdrawn as the colon was fully examined. COLON FINDINGS: There was severe diverticulosis noted in the sigmoid colon with associated tortuosity. .Large amount of blood and fresh clots seen in sigmoid and rectum.. No bleeding source seen.Retroflexed views revealed internal hemorrhoid The scope was then completely withdrawn from the patient and the procedure terminated. ADVERSE EVENTS: There were no complications. IMPRESSIONS: 1. There was severe diverticulosis and diverticulosis noted in the sigmoid colon 2. Active diverticular bleeding seen 3. Retroflexed views revealed internal hemorrhoid RECOMMENDATIONS: Angiogram, possible TAE RECALL: Return As need for Colonoscopy Heri Jones MD eSigned: Heri Jones MD 06/13/2018 2:08 PM cc: PATIENT NAME: Blayne Zambrano MR#: [id number]
[2018-06-13] MEDS ORDERED: Gelatin 12 MM/7 MM Topical Foam ONE (17:03)
[2018-06-13] MEDS ORDERED: fentaNYL Citrate Inj 250 MCG/5 ML Ampul ONE (17:06)
[2018-06-13 17:27] LABS: Hematocrit 25.7 % (39.0-51.0); Hemoglobin 8.7 gm/dL (13.0-17.0)
[2018-06-13 17:37] LABS: INR 1.1 Ratio; Prothrombin Time 11.4 sec (9.8-11.6)
--- NOTE | 2018-06-13 17:53 | P.RAD ---
Post Procedure Progress Note - Pre Procedure Diagnosis (1) Recurrent gastrointestinal hemorrhage - Post Procedure Diagnosis (1) Recurrent gastrointestinal hemorrhage - Procedure Information Procedure Date: 06/13/18 Supervising Radiologist: Gilberto Sevilla MD Anesthesia: Conscious Sedation - Plan of Activity Patient to Unit: Nursing Unit Patient Condition: Good See PACS Report for procedural detail/treatment. Vascular - Arterial Procedure Abdominal Procedure: Angiogram (sma and enrique negative for bleed)
[2018-06-13] MEDS: Gabapentin 300 MG Capsule PO SCH (22:29)
[2018-06-13 23:55] LABS: Hematocrit 23.8 % (39.0-51.0); Hemoglobin 8.2 gm/dL (13.0-17.0)
[2018-06-14] MEDS: Pantoprazole Inj 80 MG in Sodium Chlor 0.9% Inj 100 ML IV.CONT SCH ×3 (00:01→21:42)
[2018-06-14 05:02] LABS: Hematocrit 23.4 % (39.0-51.0); Hemoglobin 7.9 gm/dL (13.0-17.0); Mean Corpuscular HGB Conc 33.6 % (32.0-36.0); Mean Corpuscular Hemoglobin 30.2 pg (27.0-34.0); Mean Corpuscular Volume 89.6 fL (80.0-100.0); Mean Platelet Volume 8.1 fL (7.0-11.0); Platelet Count 146 th/mm3 (150-450); Red Blood Count 2.61 mil/mm3 (4.50-5.90); Red Cell Distribution Width 16.9 % (11.6-17.2); White Blood Count 6.2 th/mm3 (4.0-11.0)
[2018-06-14] MEDS: Sod Chloride 0.9% Inj 1,000 ML IV.CONT SCH ×3 (07:47→21:45)
[2018-06-14] MEDS: Finasteride 5 MG Tablet PO SCH (09:30)
[2018-06-14] MEDS: Gabapentin 100 MG Capsule PO SCH (09:30)
[2018-06-14] MEDS: Digoxin 125 MCG Tablet PO SCH (09:30)
--- NOTE | 2018-06-14 10:51 | IR ---
EXAM DATE: 06/13/2018 6:23 PM EST AGE/SEX: 87 years / Male INDICATIONS: Patient presents with history of lower gastrointestinal bleed in need of mesenteric ang iogram with possible embolization. CLINICAL DATA: This is the patient's initial encounter. Patient reports that signs and symptoms have been present for 1 day and indicates a pain score of 0/10. MEDICAL/SURGICAL HISTORY: . History of gastrointestinal bleed, AFIB, HTN, Diverticulitis, CAD. . Cholecystectomy, Heart bypass surgery. COMPARISON: No prior exams available for comparison. FLUORO TIME (min): 11.9 IMAGE SERIES: 6 RADIATION DOSE: 1,224 CAK ACCESS SITE: Right femoral artery SEDATION TIME (min): 30 CONTRAST (cc): 65 cc Visipaque (iodixanol) MEDICATION(S): 1 mg midazolam (Versed) IV ; 50 mcg fentanyl (Sublimaze) IV ; ; ; DEVICE(S): Right common femoral artery Syvek pad ; ; ; ; ; ; . . PROCEDURE : 1. Ultrasound-guided puncture of the access site. 2. Conscious sedation with continuous EKG and Oximetry monitoring. 3. Angiography of the superior mesenteric artery 4. Angiography of the inferior mesenteric artery The risks, benefits and alternatives to the procedure were explained and verbal and written consent w as obtained. The site was prepped in sterile fashion. Full sterile technique was used, including ca p, mask, sterile gloves and gown and a large sterile sheet. Hand hygiene and 2% chlorhexidine and/or betadine/alcohol prep was utilized per protocol for cutaneous antisepsis. Sterile gel and sterile p robe cover were utilized for ultrasound guidance. The skin and subcutaneous tissues were infiltrated with local anesthetic solution. With ultrasound and fluoroscopic guidance the selected artery was punctured and a vascular sheath was placed. A hook catheter the superior mesenteric artery was catheterized and digital abdominal organs performe d in AP projection. This demonstrated no source of gastrointestinal hemorrhage. Following this the in ferior mesenteric artery was catheterized and AP, right oblique and left oblique views were obtained. This also demonstrates no evidence of hemorrhage. The left colic artery is identified to the splenic flexure. The puncture site was closed with manual pressure and hemostasis was obtained. The patient tolerated the procedure well and there were no complications. Conscious sedation was performed with the prescribed dosages and duration as above in the presence of an independent trained radiology nurse to assist in the monitoring of the patient. EKG and oximetry remained stable throughout the procedure. CONCLUSION: 1. No evidence of acute gastrointestinal hemorrhage Electronically signed by: Gilberto Sevilla MD Board Certified Radiologist 06/14/2018 10:49 AM EST
[2018-06-14 13:11] LABS: Hemoglobin 8.5 gm/dL (13.0-17.0)
--- NOTE | 2018-06-14 13:26 | P.PNGI ---
Subjective Interval history: Patient awake and alert Sitting up in chair at bedside Tolerating clear liquids Denies abdominal pain or nausea Reports scant amount of bleeding this a.m. Physical Exam Vital signs: Vital Signs 06/13/18 14:00 06/13/18 15:44 06/13/18 16:05 Temperature 98.7 F 98.5 F Pulse Rate 90 91 H 89 Respiratory Rate 18 16 Blood Pressure 110/53 L 115/65 Pulse Oximetry 97 06/13/18 18:22 06/13/18 18:30 06/13/18 19:00 Temperature 98.0 F Pulse Rate 85 84 86 Respiratory Rate 15 22 20 Blood Pressure 141/75 H 143/79 H 150/74 H Pulse Oximetry 100 99 99 06/13/18 19:30 06/13/18 20:00 06/13/18 20:07 Temperature 97.9 F Pulse Rate 92 H 101 H 98 H Respiratory Rate 16 16 16 Blood Pressure 157/89 H 134/96 H 144/74 H Pulse Oximetry 100 100 93 L 06/13/18 23:15 06/14/18 04:00 06/14/18 08:00 Temperature 97.6 F 98.0 F 97.6 F Pulse Rate 116 H 99 H 96 H Respiratory Rate 20 20 17 Blood Pressure 126/67 152/79 H 137/70 Pulse Oximetry 96 97 96 06/14/18 12:00 Temperature 97.8 F Pulse Rate 105 H Respiratory Rate 19 Blood Pressure 132/72 Pulse Oximetry 98 Intake & Output 06/13/18 06/14/18 06/14/18 18:59 06:59 18:59 Intake Total 810 / 810 0 / 0 1090 / 1090 Output Total 300 / 300 Balance 510 / 510 0 / 0 1090 / 1090 Weight 75.7 kg Intake: IV 310 / 310 0 / 0 1090 / 1090 Protonix Inj 80 MG In NS Inj 110 / 110 90 / 90 100 ML @ 10 mls/hr IV.CONT Q10H [facility] Rx#:[id number] NS Inj 1,000 ML @ 70 mls/hr IV. 200 / 200 1000 / 1000 CONT .[id number] LIZY Rx#:[id number] NS Inj 250 ML @ 15 mls/hr IV. 0 / 0 SIG ONCE LIZY Rx#:[id number] Anesthesia Amount 100 / 100 Intake (Blood Product) Amt 400 / 400 Rbc As-3 Leukoreduced Unit 400 / 400 [id number] Output: Urine 300 / 300 Other: # Voids 3 1 # Incontinent Voids 0 Date of Last Bowel Movement 06/13/18 06/14/18 06/14/18 # Bowel Movements 1 - Constitutional no acute distress, cooperative - Routine HEENT Exam Head: Present: normocephalic - Routine Respiratory Exam Present: CTA bilaterally. Absent: accessory muscle use - Routine Abdominal Exam Present: soft, normoactive bowel sounds. Absent: tenderness, distended, guarding, firm - Routine Skin Exam Present: dry, warm. Absent: pallor - Routine Neurological Exam Present: alert, oriented X3 Results - Labs CBC & Chem 7: 06/14/18 12:20 06/13/18 03:44 Laboratory Results - last 24 hr 06/13/18 06/13/18 06/13/18 16:41 16:41 23:17 WBC RBC Hgb 8.7 L 8.2 L Hct 25.7 L 23.8 L MCV MCH MCHC RDW Plt Count MPV PT 11.4 INR 1.1 06/14/18 06/14/18 04:31 12:20 WBC 6.2 RBC 2.61 L Hgb 7.9 L 8.5 L Hct 23.4 L 25.0 L MCV 89.6 MCH 30.2 MCHC 33.6 RDW 16.9 Plt Count 146 L MPV 8.1 PT INR - Imaging Impressions Mesenteric Arteriogram 06/13/18 00:00 CONCLUSION: 1. No evidence of acute gastrointestinal hemorrhage Assessment and Plan (1) Recurrent gastrointestinal hemorrhage Status: Acute Code(s): K92.2 - Gastrointestinal hemorrhage, unspecified (2) Rectal bleeding Status: Acute Code(s): K62.5 - Hemorrhage of anus and rectum (3) GI bleed Status: Acute Code(s): K92.2 - Gastrointestinal hemorrhage, unspecified - Plan 06/12/2018 This is a very pleasant 87-year-old male patient with medical history significant for diverticulosis CAD atrial fib presented to the ER for profuse bright red blood per rectum accompanied by his . He was just hospitalized a month ago and had colonoscopy done which was found to have moderate diverticulosis. Patient did not have any more blood in the stool until this morning. Patient denies abdominal pain nausea vomiting no fever. Patient and were alerted when he had another bowel movement with profuse rectal bleeding with some clots this a.m. prompting them to come to the emergency room. Patient denies any blood thinners other than aspirin 81 mg daily. our service is consulted for recurrent GI bleed. Assessment Recurrent rectal bleeding Chronic anemia History of atrial fibrillation Possible gastroenteritis CT abdomen pelvis 06/12/2018 showed Nonspecific, nonobstructive bowel gas pattern which may represent an ileus or gastroenteritis. 2. Diverticulosis with no definite focal inflammatory change. 3. Status post cholecystectomy with mild dilatation of the central biliary system which does not appear significantly changed. 4. Moderate size retrocardiac hiatal hernia. 06/14/2018 Rectal bleeding Diverticulosis with diverticular bleeding Chronic anemia 06/13/2018 sigmoidoscopy revealed : There was severe diverticulosis and diverticulosis noted in the sigmoid colon Active diverticular bleeding seen Retroflexed views revealed internal hemorrhoid next 06/13/2018 mesenteric arteriogram by IR No evidence of acute gastrointestinal hemorrhage --Hemoglobin 8.5 hematocrit 25.0 Plan -Advance diet to full liquids for dinner and regular soft breakfast -Monitor for active bleeding -Transfuse as needed -Notify GI for any active bleeding -Monitor serial hemoglobin and hematocrit -Continue PPI -Supportive care -Further recommendations to follow This patient has been seen by myself and Dr. Jones and this note is written on his behalf - Attending Attestation Dr. Jones
--- NOTE | 2018-06-14 15:00 | P.DCO ---
Diagnosis (1) Recurrent gastrointestinal hemorrhage: Status: Acute (2) Rectal bleeding: Status: Acute (3) GI bleed: Status: Acute Physical Therapy Order: Evaluate and treat Home Health Nursing Order: Medical education, Signs/symptoms of disease process and Nursing assessment with vital signs Case Management Consult Case Management Consult-Home Health: Yes I have seen patient Blayne Zambrano on 06/14/18. My clinical findings support the need for the requested home health care services because: Deconditioned with increased weakness and High risk of falls I certify that my clinical findings support that this patient is homebound because: Unsteady gait/balance _ (1) GI bleed Qualifiers: GI bleed type/associated pathology: Gastritis type:
--- NOTE | 2018-06-14 15:00 | P.PNIM ---
Subjective Interval history: Follow up for rectal bleeding: Patient seen and examined, awake, alert oriented x3. No chest pain, no shortness of breath. Complains of some dizziness when getting out of bed. Indicates that he had a small BM this morning, was loose mixed with some dark red blood and fresh blood. It is a lot less. No abdominal pain. No nausea, no vomiting. Tolerating clear liquid diet well. at bedside with multiple questions. Physical Exam Vital signs: Vital Signs 06/13/18 15:44 06/13/18 16:05 06/13/18 18:22 Temperature 98.5 F 98.0 F Pulse Rate 91 H 89 85 Respiratory Rate 16 15 Blood Pressure 115/65 141/75 H Pulse Oximetry 97 100 06/13/18 18:30 06/13/18 19:00 06/13/18 19:30 Temperature Pulse Rate 84 86 92 H Respiratory Rate 22 20 16 Blood Pressure 143/79 H 150/74 H 157/89 H Pulse Oximetry 99 99 100 06/13/18 20:00 06/13/18 20:07 06/13/18 23:15 Temperature 97.9 F 97.6 F Pulse Rate 101 H 98 H 116 H Respiratory Rate 16 16 20 Blood Pressure 134/96 H 144/74 H 126/67 Pulse Oximetry 100 93 L 96 06/14/18 04:00 06/14/18 08:00 06/14/18 12:00 Temperature 98.0 F 97.6 F 97.8 F Pulse Rate 99 H 96 H 105 H Respiratory Rate 20 17 19 Blood Pressure 152/79 H 137/70 132/72 Pulse Oximetry 97 96 98 Intake & Output 06/13/18 06/14/18 06/14/18 18:59 06:59 18:59 Intake Total 810 / 810 0 / 0 1090 / 1090 Output Total 300 / 300 Balance 510 / 510 0 / 0 1090 / 1090 Weight 75.7 kg Intake: IV 310 / 310 0 / 0 1090 / 1090 Protonix Inj 80 MG In NS Inj 110 / 110 90 / 90 100 ML @ 10 mls/hr IV.CONT Q10H [facility] Rx#:[id number] NS Inj 1,000 ML @ 70 mls/hr IV. 200 / 200 1000 / 1000 CONT .[id number] LIZY Rx#:[id number] NS Inj 250 ML @ 15 mls/hr IV. 0 / 0 SIG ONCE LIZY Rx#:[id number] Anesthesia Amount 100 / 100 Intake (Blood Product) Amt 400 / 400 Rbc As-3 Leukoreduced Unit 400 / 400 [id number] Output: Urine 300 / 300 Other: # Voids 3 1 # Incontinent Voids 0 Date of Last Bowel Movement 06/13/18 06/14/18 06/14/18 # Bowel Movements 1 Narrative: GENERAL: 87-year-old elderly white male, well-developed, well- nourished, no apparent SKIN: Warm and dry. Pale HEAD: Atraumatic. Normocephalic. EYES: Pupils equal and round. No scleral icterus. No injection or drainage. ENT: No nasal bleeding or discharge. Mucous membranes pink and moist. NECK: Trachea midline. No JVD. CARDIOVASCULAR: S1-S2, irregular. No murmurs, no rubs, no gallops. RESPIRATORY: No accessory muscle use. Clear to auscultation. Breath sounds equal bilaterally. GASTROINTESTINAL: Abdomen soft, non-tender, nondistended. Hepatic and splenic margins not palpable. MUSCULOSKELETAL: Extremities without clubbing, cyanosis, or edema. No obvious deformities. Pedal pulses 2+ bilateral NEUROLOGICAL: Awake and alert. No obvious cranial nerve deficits. Motor grossly within normal limits. Five out of 5 muscle strength in the arms and legs. Normal speech. PSYCHIATRIC: Appropriate mood and affect; insight and judgment normal. Results Labs CBC & Chem 7: 06/14/18 12:20 06/13/18 03:44 Imaging Imaging: Impressions Mesenteric Arteriogram 06/13/18 00:00 CONCLUSION: 1. No evidence of acute gastrointestinal hemorrhage Assessment and Plan (1) Recurrent gastrointestinal hemorrhage: Code(s): K92.2 - Gastrointestinal hemorrhage, unspecified Status: Acute (2) Rectal bleeding: Code(s): K62.5 - Hemorrhage of anus and rectum Status: Acute (3) GI bleed: Code(s): K92.2 - Gastrointestinal hemorrhage, unspecified Status: Acute Plan 87 y/o male with history of diverticulosis,CAD, a-fib, who presented to ER with recurrent rectal bleed. he was admitted to this hospital about a month ago and had colonoscopy during which he was found to have diverticulosis. he says that he had another episode of rectal bleed this morning. he says that it was initially bright red but he had a few more episodes of dark-blood per rectum. he denies any abdominal pain, nausea or vomiting. he denies any chest pain, sob or dizziness. Recurrent rectal bleed -Bleeding scan with active rectal bleed. -S/P PRBC transfusion, Hgb today 7.9 -Appreciate GI input -S/P sigmoidoscopy 06/13-severe diverticulosis, diverticulosis noted in sigmoid colon, active diverticular bleeding seen -S/P mesenteric angiogram 06/13-no evidence of acute bleed -Discussed with GI, okay to advance diet if he tolerates liquid can go to full liquid then regular tonight. Recommend to keep 1 more night and monitor hemoglobin. History of A. fib, well controlled Patient used to be on warfarin which was stopped last year after 2 episodes of GI bleeding he had in [facility] -Patient currently on aspirin which is on hold -Patient is at risk of stroke, he is aware and understands risk. -continue Dig History of coronary artery disease aspirin on hold -Metoprolol on hold Renal insufficiency- improved. likely chronic -Continue to monitor renal function Avoid nephrotoxic agents History of prostate problems Continue Dutasteridetamsulosin Physical therapy evaluation Repeat labs in the morning DVT prophylaxis with SCD's- no chemical prophylaxis due to GI bleed. Case management consultation for discharge, arrange home health care Code Status: Full code Discussed Condition With: RN, patient, case management, patient's , Ana Matthew Discharge Planning: Possible discharge home with home health care tomorrow when cleared by GI Progress Note: Quality VTE Deep Vein Thrombosis/Pulmonary Embolism Present on Admission: No _ (1) GI bleed Qualifiers: GI bleed type/associated pathology: Gastritis type:
[2018-06-14] MEDS: Gabapentin 300 MG Capsule PO SCH (21:37)
[2018-06-15] MEDS: Sod Chloride 0.9% Inj 1,000 ML IV.CONT SCH ×2 (01:26→10:40)
[2018-06-15] MEDS: Pantoprazole Inj 80 MG in Sodium Chlor 0.9% Inj 100 ML IV.CONT SCH ×2 (04:38→10:01)
[2018-06-15 06:22] LABS: Hematocrit 22.6 % (39.0-51.0); Hemoglobin 7.7 gm/dL (13.0-17.0); Mean Corpuscular Hemoglobin 30.5 pg (27.0-34.0); Mean Corpuscular Volume 89.6 fL (80.0-100.0); Mean Platelet Volume 8.4 fL (7.0-11.0); Platelet Count 148 th/mm3 (150-450); Red Blood Count 2.52 mil/mm3 (4.50-5.90); Red Cell Distribution Width 17.6 % (11.6-17.2); White Blood Count 4.9 th/mm3 (4.0-11.0)
[2018-06-15 08:43] VITALS: RESP 16
[2018-06-15] MEDS: Gabapentin 100 MG Capsule PO SCH (09:11)
[2018-06-15] MEDS: Digoxin 125 MCG Tablet PO SCH (09:11)
[2018-06-15] MEDS: Finasteride 5 MG Tablet PO SCH (09:11)
[2018-06-15] MEDS ORDERED: Sodium Chlor 0.9% Inj 250 ML IV.SIG SCH (10:00)
--- NOTE | 2018-06-15 10:59 | P.PNIM ---
Subjective Interval history: Follow up for rectal bleeding: Patient seen and examined, sitting up in chair. No abdominal pain, no nausea, no vomiting. Tolerated diet well, on regular. Had bowel movement today, brown color, no blood noted. No dizziness today when getting out of bed.No chest pain, no shortness of breath , no palpitations. at bedside. Hemoglobin 7.7, agreeable with blood transfusion and then going home this afternoon. Physical Exam Vital signs: Vital Signs 06/14/18 12:00 06/14/18 16:00 06/14/18 20:00 Temperature 97.8 F 97.7 F 98.0 F Pulse Rate 105 H 86 90 Respiratory Rate 19 17 18 Blood Pressure 132/72 120/58 L 134/58 L Pulse Oximetry 98 98 97 06/15/18 00:00 06/15/18 03:54 06/15/18 08:00 Temperature 97.5 F L 97.6 F 98 F Pulse Rate 81 109 H 95 H Respiratory Rate 18 18 16 Blood Pressure 129/64 143/86 H 147/82 H Pulse Oximetry 98 95 95 Intake & Output 06/14/18 06/15/18 06/15/18 18:59 06:59 18:59 Intake Total 1690 / 1690 1100 / 1100 100 / 100 Output Total 100 / 100 200 / 200 500 / 500 Balance 1590 / 1590 900 / 900 -400 / -400 Weight 72.3 kg Intake: IV 1090 / 1090 1100 / 1100 100 / 100 Protonix Inj 80 MG In NS Inj 90 / 90 100 / 100 100 / 100 100 ML @ 10 mls/hr IV.CONT Q10H LIZY Rx#:[id number] NS Inj 1,000 ML @ 70 mls/hr IV. 1000 / 1000 1000 / 1000 CONT .[id number] LIZY Rx#:[id number] LR 1000 mL Inj 1,000 ML @ 30 0 / 0 mls/hr IV.SIG .Q24H LIZY Rx#: [id number] Oral 600 / 600 Output: Urine 100 / 100 200 / 200 500 / 500 Other: # Voids 3 1 Date of Last Bowel Movement 06/14/18 06/14/18 Narrative: GENERAL: 87-year-old elderly white male, well-developed, well- nourished, no apparent SKIN: Warm and dry. Pale HEAD: Atraumatic. Normocephalic. EYES: Pupils equal and round. No scleral icterus. No injection or drainage. ENT: No nasal bleeding or discharge. Mucous membranes pink and moist. NECK: Trachea midline. No JVD. CARDIOVASCULAR: S1-S2, irregular. No murmurs, no rubs, no gallops. RESPIRATORY: No accessory muscle use. Clear to auscultation. Breath sounds equal bilaterally. GASTROINTESTINAL: Abdomen soft, non-tender, nondistended. Hepatic and splenic margins not palpable. MUSCULOSKELETAL: Extremities without clubbing, cyanosis, or edema. No obvious deformities. Pedal pulses 2+ bilateral NEUROLOGICAL: Awake and alert. No obvious cranial nerve deficits. Motor grossly within normal limits. Five out of 5 muscle strength in the arms and legs. Normal speech. PSYCHIATRIC: Appropriate mood and affect; insight and judgment normal. Results Labs CBC & Chem 7: 06/15/18 05:08 06/13/18 03:44 Assessment and Plan (1) Recurrent gastrointestinal hemorrhage: Code(s): K92.2 - Gastrointestinal hemorrhage, unspecified Status: Acute (2) Rectal bleeding: Code(s): K62.5 - Hemorrhage of anus and rectum Status: Acute (3) GI bleed: Code(s): K92.2 - Gastrointestinal hemorrhage, unspecified Status: Acute Plan 87 y/o male with history of diverticulosis,CAD, a-fib, who presented to ER with recurrent rectal bleed. he was admitted to this hospital about a month ago and had colonoscopy during which he was found to have diverticulosis. he says that he had another episode of rectal bleed this morning. he says that it was initially bright red but he had a few more episodes of dark-blood per rectum. he denies any abdominal pain, nausea or vomiting. he denies any chest pain, sob or dizziness. Recurrent rectal bleed -Bleeding scan with active rectal bleed. -S/P PRBC transfusion, Hgb today 7.9 -Appreciate GI input -S/P sigmoidoscopy 06/13-severe diverticulosis, diverticulosis noted in sigmoid colon, active diverticular bleeding seen -S/P mesenteric angiogram 06/13-no evidence of acute bleed -Discussed with GI, okay to advance diet if he tolerates liquid can go to full liquid then regular tonight. Recommend to keep 1 more night and monitor hemoglobin. -Hemoglobin 7.7, will give 1 unit of blood. Will stop Protonix drip and change to p.o. Tolerating diet well, no more blood in the stool. -adv. to regular History of A. fib, well controlled Patient used to be on warfarin which was stopped last year after 2 episodes of GI bleeding he had in [facility] -Patient currently on aspirin which is on hold -Patient is at risk of stroke, he is aware and understands risk. -continue Dig History of coronary artery disease aspirin on hold -Metoprolol on hold Renal insufficiency- improved. likely chronic -Continue to monitor renal function Avoid nephrotoxic agents History of prostate problems Continue Dutasteridetamsulosin Physical therapy evaluation Repeat labs in the morning DVT prophylaxis with SCD's- no chemical prophylaxis due to GI bleed. Case management consultation for discharge, home health care. Patient and declining, they are driving back to [place] tomorrow but will make stop midway there. Patient ambulating with walker in room, tolerating well. Plan to discharge this afternoon after blood transfusion Needs to follow-up with GI and PCP and [facility] Continue with aspirin Heart healthy diet, low fiber Activity as tolerated Code Status: Full code Discussed Condition With: RN, pt and , CM Dr. Castro Discharge Planning: DC this afternoon after PRBC transfusion Progress Note: Quality VTE Deep Vein Thrombosis/Pulmonary Embolism Present on Admission: No _ (1) GI bleed Qualifiers: GI bleed type/associated pathology: Gastritis type:
[2018-06-15 14:03] VITALS: BP 130/71; TEMP 98.4; O2SAT 98
[2018-06-15 15:46] VITALS: PULSE 105
--- NOTE | 2018-06-15 16:07 | P.DS ---
DS: Providers Date of admission: 06/13/18 11:00 Primary care physician: Kenneth Marquis Attending physician on admission: Ivana Roldan Consults: 06/12/18 10:35 HUB Only Consult Order Routine Consulting Provider: Moni Monteengro 06/12/18 10:39 Consult to Gastroenterology Routine Consulting Provider: Heri Jones V Reason for Consultation: recurrent GI bleed- known to GI service. Notified:: Office Spoke with:: mercedez Date Notified:: 06/12/18 Time Notified:: 10:45 Ordering Provider: MORELIA Attending physician on discharge: Starr Castro Discharging clinician: Marian Moncada Anticipated date of discharge: 06/15/18 Brief History from admission: patient is a 87 y/o male with history of diverticulosis,CAD, a-fib, who presented to ER with recurrent rectal bleed. he was admitted to this hospital about a month ago and had colonoscopy during which he was found to have diverticulosis. he says that he had another episode of rectal bleed this morning. he says that it was initially bright red but he had a few more episodes of dark-blood per rectum. he denies any abdominal pain, nausea or vomiting. he denies any chest pain, sob or dizziness. DS: Diagnosis Discharge Diagnosis (1) Recurrent gastrointestinal hemorrhage: Status: Acute (2) Rectal bleeding: Status: Acute (3) GI bleed: Status: Acute DS: Summary 87 y/o male with history of diverticulosis,CAD, a-fib, who presented to ER with recurrent rectal bleed. he was admitted to this hospital about a month ago and had colonoscopy during which he was found to have diverticulosis. he says that he had another episode of rectal bleed this morning. he says that it was initially bright red but he had a few more episodes of dark-blood per rectum. he denies any abdominal pain, nausea or vomiting. he denies any chest pain, sob or dizziness. Patient was admitted with: Recurrent rectal bleed -Bleeding scan with active rectal bleed. -S/P PRBC transfusion x 2 -GI consulted --S/P sigmoidoscopy 06/13-severe diverticulosis, diverticulosis noted in sigmoid colon, active diverticular bleeding seen -S/P mesenteric angiogram 06/13-no evidence of acute bleed -Discussed with GI, okay to advance diet. Diet advance, patient tolerated well -Hemoglobin 7.7, was given 1 unit of blood. -IV protonix stopped -No blood in stools, tolerating diet well. Okay for discharge by gastroenterology. -ok to resume ASA History of A. fib, well controlled Patient used to be on warfarin which was stopped last year after 2 episodes of GI bleeding he had in [facility] -Patient currently on aspirin which was on hold -Patient is at risk of stroke, he is aware and understands risk. -continued Dig History of coronary artery disease aspirin on hold -Metoprolol on hold Renal insufficiency- improved. likely chronic -Continue to monitor renal function Avoided nephrotoxic agents History of prostate problems Continued Dutasteridetamsulosin PT eval CM consulted, [facility] recommended. Pt and declined, they were driving back to [facility]. Patient stabilized, no rectal bleeding, received blood and tolerated well Tolerated regular diet well Patient was discharged home in stable condition Instructed to follow-up with GI and PCP and was Isabella Continue with aspirin Heart healthy diet, low fiber Activity as tolerated Time Spent with Patient Total time spent providing and/or coordinating discharge services:45 Greater than 30 minutes Status at Discharge Functional status at discharge: independent ambulation Overall status at discharge: patient is back to baseline Quality: VTE Deep Vein Thrombosis/Pulmonary Embolism Present on Admission: No Results Procedures completed during hospitalization: -S/P sigmoidoscopy 06/13-severe diverticulosis, diverticulosis noted in sigmoid colon, active diverticular bleeding seen -S/P mesenteric angiogram 06/13-no evidence of acute bleed - Labs on day of discharge: Labs from last 24 hours 06/15/18 06/15/18 11:24 05:08 WBC 4.9 RBC 2.52 L Hgb 7.7 L Hct 22.6 L MCV 89.6 MCH 30.5 MCHC 34.0 RDW 17.6 H Plt Count 148 L MPV 8.4 Blood Type B Negative Antibody Screen Negative MTS Gel Crossmatch See Detail Impressions ITS Impressions GI Bleed Scan Nuclear Medicine 06/12/18 00:00 CONCLUSION: 1. Findings consistent with active hemorrhage in the rectum. Abdomen/Pelvis CT 06/12/18 08:46 CONCLUSION: 1. Nonspecific, nonobstructive bowel gas pattern which may represent an ileus or gastroenteritis. 2. Diverticulosis with no definite focal inflammatory change. 3. Status post cholecystectomy with mild dilatation of the central biliary system which does not appear significantly changed. 4. Moderate size retrocardiac hiatal hernia. Mesenteric Arteriogram 06/13/18 00:00 CONCLUSION: 1. No evidence of acute gastrointestinal hemorrhage Discharge Plan Discharge Disposition Patient Disposition: 01 Discharge Home Discharge Condition Condition: Stable Discharge Order Discharge Orders: Discharge Order (Routine); Ordered 06/15/18 Ordered By: Marian Moncada Discharge Details Anticipated Discharge Date: 06/15/18 Discharge Comment: discharge after blood transfusion Physicians Team Attending Provider: Starr Castro Other Providers: Heri Jones V ; [employer] Rxs /Orders / Referrals /Forms Prescriptions: Continue aspirin [Aspir-81] 81 mg Tablet,Delayed Release (Dr/Ec) 81 mg PO DAILY RF: 0 gabapentin [Neurontin] 300 mg Capsule 300 mg PO HS RF: 0 gabapentin [Neurontin] 100 mg Capsule 100 mg PO DAILY RF: 0 digoxin 125 mcg Tablet 0.125 mg PO DAILY RF: 0 magnesium 250 mg Tablet 240 mg PO DAILY RF: 0 dutasteride-tamsulosin 0.5-0.4 mg Capsule, Er Multiphase 24 Hr 0.5 mg PO DAILY RF: 0 Referrals: Kenneth Marquis [Other] - See Instructions (Follow up with PCP and GI doctor in [place] next week ) Discharge Instructions Patient Printed Instructions: Gastrointestinal Bleeding (DC), Rectal Bleeding ( DC), Flexible Sigmoidoscopy (DC) Post Discharge Care Plan Care Plan Goals: Your Health Problems: Goals to Promote Your Health: * To prevent worsening of your condition * To maintain your health at the optimal level Directions to Meet Your Goals: * Take your medications as prescribed * Follow your dietary instruction * Follow activity as directed * Keep your appointments as scheduled * Take your immunizations and boosters as scheduled * If your symptoms worsen call your PCP * If no PCP go to Urgent Care or Emergency Room Smoking is dangerous to your health. Avoid second hand smoke. You may reach the 24-hour crisis hotline for domestic abuse at . Status ED Status: Left Department Discharge Information Discharge Date/Time: 06/15/18 16:03
== END 2018-06-15 16:03 | disposition home or self-care (01) | DRG 378 ==
LOC: NEPD 07:59 → NEDA 07:59 → NEPGCP 11:25 → N07 06-13 22:54
PROVIDERS: ADMIT Hospitalist; ATTEND Hospitalist
DX: I10 Essential (primary) hypertension; Z79.899 Other long term (current) drug therapy; R26.81 Unsteadiness on feet; K44.9 Diaphragmatic hernia without obstruction or gangrene; D64.9 Anemia, unspecified; I12.9 Hypertensive chronic kidney disease with stage 1 through stage 4 chronic kidney disease, or unspecified chronic kidney disease; Z90.49 Acquired absence of other specified parts of digestive tract; D62 Acute posthemorrhagic anemia; N18.9 Chronic kidney disease, unspecified; K64.8 Other hemorrhoids; I25.10 Atherosclerotic heart disease of native coronary artery without angina pectoris; Z88.5 Allergy status to narcotic agent; K57.31 Diverticulosis of large intestine without perforation or abscess with bleeding; Z79.82 Long term (current) use of aspirin; I48.91 Unspecified atrial fibrillation
CPT/HCPCS: 36245; 36430; 74177; 75726; 75774; 76937; 78278; 80048; 80053; 81001; 82105; 82378; 83690; 85014; 85018; 85025; 85027; 85610; 86301; 86850; 86900; 86901; 86923; 96361; 96365; 97162; 99145; 99152; 99153; 99285; A4646; A9560; C1769; C1887; C1893; C1894; C9113; G0378; J2250; J2704; J3010; J7030; J7050; J7120; P9016; Q3010; Q9949; Q9967